=== PATIENT | female | born 1955 | race Caucasian/White ===

== ENCOUNTER 2017-01-20 15:44 | Inpatient (IN) ==
[2017-01-20] MEDS ORDERED: Ipratropium/Albuterol Neb 3 ML IH ONE (15:58)
[2017-01-20] MEDS ORDERED: Albuterol 2.5 MG/3 ML NEBULIZER IH ONE (15:58)
[2017-01-20] MEDS ORDERED: methylPREDNISolone 125 MG/2 ML VIAL IVP ONE (15:58)
--- NOTE | 2017-01-20 16:01 | Emergency Department Note ---
Disposition Clinical Impression: COPD exacerbation Pneumonia Qualifiers: Pneumonia type: due to unspecified organism Laterality: left Lung location: lower lobe of lung Qualified Code(s): J18.1 - Lobar pneumonia, unspecified organism Disposition: Admitted As Inpatient Condition: Good Referrals: NO,PCP [Non-Partnered Physician] - Forms: ED Satisfaction Letter Time of Disposition: 18:22 SOB HPI - General Chief Complaint: ED Shortness of Breath/Dyspnea Stated Complaint: khushboo Time Seen by Provider: 01/20/17 15:55 Source: patient Mode of arrival: EMS Limitations: no limitations Nursing Notes Reviewed: Yes Vital Signs Reviewed: Yes - History of Present Illness 61-year-old white female transported by EMS with difficulty breathing, cough, fever. She states she has been sick for 3 months. She has been on antibiotics on and off. Her most recent antibiotic is Ceftin. Her most recent steroid taper was started 2-1/2 weeks ago. She states the last 2 days she has had intermittent fever up to 102.7. Her cough is nonproductive. She wears home oxygen at 3 L. Her last breathing treatment was a DuoNeb in route and the squad. She denies chest pain. She states she has been more short of breath than usual for at least 2 weeks. Pt Subjective Complaint: shortness of breath, cough Onset (ago): week(s) Context: recent illness (2) Severity: moderate Consistency/Duration: constant Improves with: oxygen, rest, bronchodilators Worsens with: exertion, coughing Known history of: COPD Associated symptoms: Reports: denies other symptoms Treatment prior to arrival: oxygen, bronchodilator, other (Prednisone) Cough present: Yes Cough Description: Involuntary Cough Frequency: Intermittent Sputum production: No - Related Data Home oxygen amount: 3 liters Home Medications Medication Instructions Recorded Confirmed Acetaminophen [Tylenol] 500 mg PO BID 01/20/17 01/20/17 Alprazolam [Xanax 0.5 MG Tablet] 0.5 mg PO DAILY 01/20/17 01/20/17 Aspirin 81 mg PO DAILY 01/20/17 01/20/17 Bupropion HCl [Wellbutrin Xl] 300 mg PO DAILY 01/20/17 01/20/17 Docusate [Colace] 100 mg PO BID 01/20/17 01/20/17 Ibuprofen [Motrin] 800 mg PO Q8HR 01/20/17 01/20/17 Metformin [Glucophage] 1,000 mg PO BIDWM 01/20/17 01/20/17 Omeprazole [PriLOSEC] 40 mg PO DAILY 01/20/17 01/20/17 Oxygen 1 each .ROUTE AD 01/20/17 01/20/17 PredniSONE [Deltasone] 20 mg PO DAILY 01/20/17 01/20/17 Promethazine [Phenergan] 25 mg PO Q6HR 01/20/17 01/20/17 Ranitidine HCl [Zantac] 150 mg PO BID 01/20/17 01/20/17 Roflumilast [Daliresp] 500 mcg PO DAILY 01/20/17 01/20/17 Sucralfate [Carafate] 1 gm PO QIDAC 01/20/17 01/20/17 Allergies Allergy/AdvReac Type Severity Reaction Status Date / Time doxycycline Allergy Anaphylaxis Verified 12/20/16 17:18 Latex, Natural Rubber Allergy Redness of Verified 12/20/16 17:18 Skin levofloxacin [From Levaquin] Allergy Anaphylaxis Verified 12/20/16 17:18 moxifloxacin [From Avelox] Allergy Anaphylaxis Verified 12/20/16 17:18 propoxyphene AdvReac Nausea Verified 12/20/16 17:18 [From Darvocet-N] All systems ED: reviewed and negative except as stated. Constitutional: Reports: fever, chills Eyes: Denies: eye discharge ENT ED: Denies: ear pain, throat pain Cardiovascular: Reports: palpitations. Denies: chest pain Respiratory: Reports: cough, dyspnea, wheezes. Denies: sputum production Gastrointestinal: Denies: abdominal pain, nausea, vomiting, diarrhea Psychiatric: Reports: anxiety Past Medical History - Past Medical History Medical history: Reports: arthritis, COPD, coronary artery disease, diabetes, GERD, hyperlipidemia, hypertension Surgical history: Reports: appendectomy, breast surgery, hysterectomy, orthopedic, other Psychiatric history: Reports: anxiety - Social History Smoking Status: Former smoker Smokeless Tobacco Status: No Alcohol use: Reports: none Drug use: Reports: none Physical Exam - General Limitations: no limitations General appearance: alert, in no apparent distress - Head Head exam: atraumatic, normocephalic - Eye Eye exam: Present: PERRL, EOMI. Absent: scleral icterus, conjunctival injection - ENT ENT exam: normal oropharynx, mucous membranes moist, TM's normal bilaterally - Neck Neck exam: Present: normal inspection, full ROM, trachea midline. Absent: tenderness, lymphadenopathy - Chest Chest inspection: Present: normal inspection, symmetric chest wall rise - Respiratory Respiratory exam: Present: respiratory distress (Mildly dyspneic), wheezes ( Moderate, bilateral, expiratory, diffuse.), prolonged expiratory phase - Cardiovascular Cardiovascular exam: Present: tachycardia (Rate of 1:30). Absent: systolic murmur, diastolic murmur, gallop - Abdominal Exam Abdominal exam: Present: soft, Non-Tender - Extremities Exam Extremities exam: Present: normal capillary refill. Absent: pedal edema, calf tenderness - Neurological Exam Neurological exam: Present: alert, oriented X3. Absent: motor sensory deficit - Psychiatric Psychiatric exam: Present: anxious - Skin Skin exam: Present: warm, dry, intact. Absent: cyanosis, diaphoresis Course - Reevaluation(s) Reevaluation #1: Patient improved. Her heart rate is down to 105. She is moving air better. She feels better. She will require hospitalization. I discussed this with the patient. She is agreeable. I spoke with Dr. Carney. He has accepted the patient for admission. Time: 18:20 Vital Signs Temperature 102.2 F H 01/20/17 15:44 Pulse Rate 120 01/20/17 15:44 Respiratory Rate 30 01/20/17 15:44 Blood Pressure 160/91 01/20/17 15:44 O2 Sat by Pulse Oximetry 97 01/20/17 15:44 Temperature 101.4 F H 01/20/17 18:04 Pulse Rate 126 01/20/17 17:14 Respiratory Rate 20 01/20/17 18:04 Blood Pressure 95/73 01/20/17 17:14 O2 Sat by Pulse Oximetry 96 01/20/17 18:04 Oxygen Delivery Oxygen Delivery Nasal Cannula Shortness of Breath/Dyspnea - [facility] Narrative Medical decision making narrative: Differential includes but is not limited to pneumonia, CHF, COPD exacerbation, bronchitis with bronchospasm, pleural effusion, pulmonary embolus, congestive heart failure. Radiographically she has atelectasis on the left, clinically she has pneumonia, findings on exam as well as fever. I am going to treat her for a left-sided pneumonia with COPD exacerbation. She will be admitted. - Lab Data Result diagrams: 01/20/17 16:57 01/20/17 16:57 Lab Results 01/20/17 01/20/17 01/20/17 Range/Units 16:57 16:57 16:57 WBC 17.9 H (4.3-11.1) K/mcL RBC 4.51 (3.82-4.97) M/mcL Hgb 14.0 (11.5-15.4) g/dL Hct 42.5 (35.3-44.9) % MCV 94.2 (83.0-100.0) fL MCH 31.0 (28.0-33.3) pg MCHC 32.9 (31.6-35.5) g/dL RDW 14.1 (11.5-14.5) % Plt Count 181 (140-400) K/mcL MPV 10.0 (9.4-12.4) fL Immature Gran % 0.6 (0-4) % Seg Neutrophils % 79.1 % Lymphocytes % 10.8 % Monocytes % 9.2 % Eosinophils % 0.1 % Basophils % 0.2 % Neutrophils # 14.2 H (1.6-8.9) K/mcL Lymphocytes # 1.9 (0.6-4.6) K/mcL Monocytes # 1.7 H (0.0-1.3) K/mcL Eosinophils # 0.0 (0.0-0.6) K/mcL Basophils # 0.0 (0.0-0.2) K/mcL VBG Lactic Acid (0.5-2.2) mmol/L Sodium 139 (136-145) mEq/L Potassium 4.3 (3.5-4.5) mEq/L Chloride 100 (98-109) mEq/L Carbon Dioxide 25 (19-29) mEq/L BUN 14 (7-20) mg/dL Creatinine 0.75 (0.57-1.11) mg/dL Est GFR ( Amer) > 60 (> 60) Est GFR (Non-Af Amer) > 60 (> 60) BUN/Creatinine Ratio 19 (6-26) Glucose 100 H (70-99) mg/dL Calculated Osmolality 289 (280-300) Calcium 9.8 (8.6-10.8) mg/dL Total Bilirubin 0.3 (0.2-1.2) mg/dL AST 15 (5-34) Units/L ALT 17 (0-55) Units/L Alkaline Phosphatase 73 (38-126) Units/L Troponin I 0.02 (0-0.03) ng/mL B-Natriuretic Peptide (0-100) pg/mL Serum Total Protein 7.7 (6.0-8.3) g/dL Albumin 3.6 (3.5-5.0) g/dL Globulin 4.1 H (2.4-3.5) g/dL Albumin/Globulin Ratio 0.9 L (1.1-2.2) 01/20/17 01/20/17 Range/Units 16:57 16:57 WBC (4.3-11.1) K/mcL RBC (3.82-4.97) M/mcL Hgb (11.5-15.4) g/dL Hct (35.3-44.9) % MCV (83.0-100.0) fL MCH (28.0-33.3) pg MCHC (31.6-35.5) g/dL RDW (11.5-14.5) % Plt Count (140-400) K/mcL MPV (9.4-12.4) fL Immature Gran % (0-4) % Seg Neutrophils % % Lymphocytes % % Monocytes % % Eosinophils % % Basophils % % Neutrophils # (1.6-8.9) K/mcL Lymphocytes # (0.6-4.6) K/mcL Monocytes # (0.0-1.3) K/mcL Eosinophils # (0.0-0.6) K/mcL Basophils # (0.0-0.2) K/mcL VBG Lactic Acid 1.8 (0.5-2.2) mmol/L Sodium (136-145) mEq/L Potassium (3.5-4.5) mEq/L Chloride (98-109) mEq/L Carbon Dioxide (19-29) mEq/L BUN (7-20) mg/dL Creatinine (0.57-1.11) mg/dL Est GFR ( Amer) (> 60) Est GFR (Non-Af Amer) (> 60) BUN/Creatinine Ratio (6-26) Glucose (70-99) mg/dL Calculated Osmolality (280-300) Calcium (8.6-10.8) mg/dL Total Bilirubin (0.2-1.2) mg/dL AST (5-34) Units/L ALT (0-55) Units/L Alkaline Phosphatase (38-126) Units/L Troponin I (0-0.03) ng/mL B-Natriuretic Peptide 26 (0-100) pg/mL Serum Total Protein (6.0-8.3) g/dL Albumin (3.5-5.0) g/dL Globulin (2.4-3.5) g/dL Albumin/Globulin Ratio (1.1-2.2) - EKG Data EKG attestation: Yes I reviewed and interpreted this EKG. EKG results narrative: Sinus tachycardia, rate of 126, nonspecific ST-T changes. Rhythm strip shows sinus tachycardia with a rate of 126, appear irritable 49 ms, QRS of 80 ms with no other ectopy as interpreted by me. This is compared to a tracing dated , no significant change with the exception of the tachycardia
[2017-01-20] MEDS ORDERED: Azithromycin 500 MG in D5% in Water 250 ML IVPB ONE (16:03)
[2017-01-20 17:11] LABS: Basophils % 0.2 %; Eosinophils % 0.1 %; Hematocrit 42.5 % (35.3-44.9); Immature Granulocytes % 0.6 % (0-4); Lymphocytes # 1.9 K/mcL (0.6-4.6); Lymphocytes % 10.8 %; Mean Corpuscular HGB Conc 32.9 g/dL (31.6-35.5); Mean Corpuscular Volume 94.2 fL (83.0-100.0); Monocytes # 1.7 K/mcL (0.0-1.3); Monocytes % 9.2 %; Neutrophils # 14.2 K/mcL (1.6-8.9); Platelet Count 181 K/mcL (140-400); Red Blood Count 4.51 M/mcL (3.82-4.97); Red Cell Distribution Width 14.1 % (11.5-14.5); Segmented Neutrophils % 79.1 %
[2017-01-20 17:30] LABS: Alanine Aminotransferase 17 Units/L (0-55); Albumin 3.6 g/dL (3.5-5.0); Albumin/Globulin Ratio 0.9 (1.1-2.2); Alkaline Phosphatase 73 Units/L (38-126); Aspartate Amino Transferase 15 Units/L (5-34); BUN/Creatinine Ratio 19 (6-26); Bilirubin,Total 0.3 mg/dL (0.2-1.2); Blood Urea Nitrogen 14 mg/dL (7-20); Calcium 9.8 mg/dL (8.6-10.8); Carbon Dioxide 25 mEq/L (19-29); Chloride 100 mEq/L (98-109); Globulin 4.1 g/dL (2.4-3.5); Glucose 100 mg/dL (70-99); Osmolality,Calculated 289 (280-300); Potassium 4.3 mEq/L (3.5-4.5); Sodium 139 mEq/L (136-145); Total Protein 7.7 g/dL (6.0-8.3); eGFR For African Americans > 60 (> 60); eGFR For Non-African Americans > 60 (> 60)
[2017-01-20] MEDS ORDERED: 0.9 % Sodium Chloride 500 ML IVC ONE (17:38)
[2017-01-20] MEDS ORDERED: 0.9 % Sodium Chloride 1,000 ML IVC SCH ×2 (17:45→19:23)
[2017-01-20] MEDS ORDERED: *HR* OxyCODONE/APAP 5/325 TABLET PO ONE (17:51)
[2017-01-20] MEDS ORDERED: Ondansetron ODT 4 MG TAB.RAPDIS SL ONE (17:57)
[2017-01-20] MEDS ORDERED: Azithromycin 500 MG in D5% in Water 250 ML IVPB SCH (19:23)
[2017-01-20] MEDS ORDERED: Naloxone 0.4 MG/ML INJ IVP PRN (19:23)
[2017-01-20] MEDS: Ipratropium/Albuterol Neb 3 ML IH SCH ×2 (20:24→23:31)
[2017-01-20] MEDS ORDERED: *HR* Morphine 2 MG/ML SYRINGE IVP ONE (20:27)
[2017-01-20] MEDS: Nitroglycerin 0.4 MG TAB.SUBL SL PRN ×2 (20:47→20:54)
[2017-01-20] MEDS: MethylPREDNISolone 40 MG/ML VIAL IVP SCH (20:54)
[2017-01-20] MEDS: 0.9 % Sodium Chloride 1,000 ML IVC SCH (20:55)
[2017-01-20] MEDS: Famotidine 20 MG TABLET PO SCH (20:55)
[2017-01-20] MEDS: Sucralfate 1 GM TABLET PO SCH (20:56)
[2017-01-20] MEDS: Ondansetron 4 MG/2 ML VIAL IVP PRN (21:08)
[2017-01-20] MEDS: Budesonide/Formoterol 80/4.5 MDI IH SCH (23:31)
[2017-01-21] MEDS: 0.9 % Sodium Chloride 1,000 ML IVC SCH (04:10)
[2017-01-21] MEDS: Ipratropium/Albuterol Neb 3 ML IH SCH ×2 (04:28→08:25)
[2017-01-21] MEDS: *HR* Enoxaparin 40 MG/0.4 ML SYRINGE SQ SCH (04:50)
[2017-01-21] MEDS: MethylPREDNISolone 40 MG/ML VIAL IVP SCH ×3 (04:50→18:08)
[2017-01-21] MEDS: *HR* HYDROcodone/Acet 5/325 mg TABLET PO PRN ×2 (05:36→10:44)
[2017-01-21] MEDS: Budesonide/Formoterol 80/4.5 MDI IH SCH ×2 (07:29→22:18)
[2017-01-21] MEDS: Sucralfate 1 GM TABLET PO SCH ×4 (08:47→22:30)
[2017-01-21] MEDS: *HR* Metformin 500 MG TABLET PO SCH ×2 (08:48→17:57)
[2017-01-21] MEDS: Aspirin 81 MG TAB.CHEW PO SCH (08:49)
[2017-01-21] MEDS: Famotidine 20 MG TABLET PO SCH ×2 (08:50→22:32)
[2017-01-21] MEDS: BuPROPion XL (24 HR) 150 MG TABLET PO SCH (08:51)
[2017-01-21] MEDS ORDERED: ALPRAZolam 0.5 MG TABLET PO SCH (09:00)
--- NOTE | 2017-01-21 10:32 | Electrocardiograph Report ---
[address] [place], [place] [address] Test Date: 2017-01-20 Pat Name: Chapis Talavera Department: [id number] Room: [facility] Gender: F Drawing Instructor: : [id number] Requested By: Scott Madrid Order Number: [id number] Reading MD: Arvind Calderon Measurements Intervals [place] Rate: 126 P: 63 PA: 149 QRS: 67 QRSD: 80 T: 59 QT: 276 QTc: 351 Interpretive Statements SINUS TACHYCARDIA ABNORMAL RHYTHM ECG Electronically Signed On 01-21-2017 10:30:34 EDT by Arvind Calderon
--- NOTE | 2017-01-21 10:35 | Internal Med History&Physical ---
Date of Encounter: 01/21/17 Time of Encounter: 10:00 Assessment and Plan (1) Pneumonia Current visit: Yes Status: Acute Equivocal evidence. She has been started on Rocephin and Zithromax with Solu- Medrol through emergency room. I will order viral respiratory panel. Qualifiers: Pneumonia type: due to unspecified organism Laterality: left Lung location: lower lobe of lung Qualified Code(s): J18.1 - Lobar pneumonia, unspecified organism (2) COPD exacerbation Current visit: Yes Status: Acute Continue antibiotics, Solu-Medrol, Symbicort, albuterol nebs, and Robitussin. Will start Spiriva (3) DM type 2 (diabetes mellitus, type 2) Current visit: Yes Status: Chronic Hemoglobin A1c was acceptable at 5.4% on 11/27/2016. Continue Glucophage and Accu-Cheks with SSI. Qualifiers: Diabetes mellitus complication status: without complication Diabetes mellitus senior living insulin use: without long term care administrator use Qualified Code(s): E11.9 - Type 2 diabetes mellitus without complications (4) Hypertension Current visit: Yes Status: Chronic Continue Coreg Qualifiers: Hypertension type: essential hypertension Qualified Code(s): I10 - Essential (primary) hypertension Internal Medicine - H&P: HPI Chief complaint: Dyspnea Admitted From: Home Plans for Post Hospital Care: Home History of present illness: Ms. Talavera is a 61 year old female who came to the emergency room at the insistence of her home health aide after having fevers up to 101 at home over the last 2 days. She reports she has been having multiple respiratory infections with dyspnea for the past 2-3 months. She has taken courses of erythromycin, Augmentin, and Ceftinir without significant improvement. She was evaluated in emergency room and felt to have possible pneumonia. She was [facility] floor for ongoing care needs. Her respiratory history is significant for having smoked from age 17 until quitting approximately 6 months ago. She smoked up to 3 packs per day. She has a diagnosis of COPD and wears oxygen at home 24/7 at 3 L/m. She uses an electronic cigarette occasionally at home. She has been tested for sleep apnea but was not prescribed BiPAP. She follows with [employer] quarter backer every 3-6 months with next appointment scheduled 02/18/2017. Chest CT 11/09/2016 showed bandlike nodularity within the lingula with a 6 mm nodule density present. Short-term follow-up CT was suggested in 6 months. Past Med Surg Social Fam HX - Past Medical History Medical history: arthritis, COPD, coronary artery disease, diabetes, GERD, hyperlipidemia, hypertension Psychiatric history: anxiety - Past Surgical History Surgical History: appendectomy, breast surgery, hysterectomy, orthopedic, other - Social History Smoking Status: Former smoker Smokeless Tobacco Status: No Alcohol use: none Drug use: none - Family History Mother Living Status: Hx Family Cancer: Yes (lung cancer) Father Living Status: Still Living Hx Family Cardiac Disorders: Yes (HTN) Internal Medicine - H&P: Meds Acetaminophen [Tylenol] 500 mg PO BID 01/20/17 [History] Alprazolam [Xanax 0.5 MG Tablet] 0.5 mg PO DAILY 01/20/17 [History] Aspirin 81 mg PO DAILY 01/20/17 [History] Bupropion HCl [Wellbutrin Xl] 300 mg PO DAILY 01/20/17 [History] Docusate [Colace] 100 mg PO BID 01/20/17 [History] Ibuprofen [Motrin] 800 mg PO Q8HR 01/20/17 [History] Metformin [Glucophage] 1,000 mg PO BIDWM 01/20/17 [History] Omeprazole [PriLOSEC] 40 mg PO DAILY 01/20/17 [History] Oxygen 1 each .ROUTE AD 01/20/17 [History] PredniSONE [Deltasone] 20 mg PO DAILY 01/20/17 [History] Promethazine [Phenergan] 25 mg PO Q6HR 01/20/17 [History] Ranitidine HCl [Zantac] 150 mg PO BID 01/20/17 [History] Roflumilast [Daliresp] 500 mcg PO DAILY 01/20/17 [History] Sucralfate [Carafate] 1 gm PO QIDAC 01/20/17 [History] Allergies doxycycline Allergy (Verified 12/20/16 17:18) Anaphylaxis Latex, Natural Rubber Allergy (Verified 12/20/16 17:18) Redness of Skin levofloxacin [From Levaquin] Allergy (Verified 12/20/16 17:18) Anaphylaxis moxifloxacin [From Avelox] Allergy (Verified 12/20/16 17:18) Anaphylaxis propoxyphene [From Darvocet-N] Adverse Reaction (Verified 12/20/16 17:18) Nausea All Systems PM: A 10-system review of systems was performed and is negative for pertinent findings except as documented above in the HPI. Review of systems: Gen.: She states her weight has fluctuated significantly over the past year due to steroid use. Cardiovascular: She has history of hypertension but denies AL heart failure angina DVT or pulmonary embolus Respiratory: As per history of present illness GI: She has GERD but denies disorders of her liver gallbladder or exocrine pancreas : She denies hematuria dysuria or kidney stones Neurologic: She denies large distribution strokes or seizures Endocrine: She was diagnosed with DM 2 approximately 2 years ago. She has hyperlipidemia but denies thyroid disease Hematology/oncology: She denies blood disorders cancers or anemia Psychiatric: She has anxiety and depression but denies other mental health issues Musk skeletal: She reports 3 rotator cuff surgeries on her left shoulder in the past. She has had bilateral total shoulder replacements in 2011/2012. She has degenerative disc disease of the neck. She denies gout or other bone joint or muscle disorders. - Constitutional Vitals: Temp Pulse Resp BP Pulse Ox 97.5 F L 81 16 120/66 95 01/21/17 06:48 01/21/17 06:48 01/21/17 08:28 01/21/17 06:48 01/21/17 08:28 Exam: Gen.: She is a well-developed well-nourished female who appears slightly dyspneic HEENT: Head is atraumatic, normocephalic. Eyes: EOMI. There is no scleral icterus. Mouth: Mucosa is moist. Neck: Supple and nontender. There is no thyromegaly or adenopathy noted. Heart: Regular without murmurs gallops or ectopics. Lungs: She has diminished breath sounds diffusely. There is prolonged expiratory phase. There is a trivial amount expiratory wheezing heard. There is no egophony. Abdomen: Soft and nontender. No masses or guarding are noted. Extremities: There is no cyanosis edema or clubbing noted. Dorsalis pedis and posttibial pulses are 1-2 over 2 bilaterally. Neurologic: Mental status: She is talkative and a good historian. Cranial nerves: Smile is symmetric. Forehead wrinkles bilaterally. Tongue protrudes midline. EOMI. Motor: There is no pronator drift. Cerebellar: Finger to nose is intact bilaterally. Skin: Warm and dry Internal Med - H&P Results - Labs CBC & Chem 7: 01/20/17 16:57 01/20/17 16:57
[2017-01-21] MEDS: Ondansetron 4 MG/2 ML VIAL IVP PRN (10:40)
[2017-01-21] MEDS ORDERED: Tiotropium 18 MCG inhalation IH SCH (11:00)
[2017-01-21] MEDS ORDERED: Ipratropium/Albuterol Neb 3 ML IH SCH (12:00)
[2017-01-21] MEDS: Azithromycin 500 MG in D5% in Water 250 ML IVPB SCH (15:52)
[2017-01-21] MEDS: Ipratropium/Albuterol Neb 3 ML IH PRN ×2 (16:14→22:18)
[2017-01-21] MEDS: *HR* OxyCODONE/APAP 5/325 TABLET PO PRN ×2 (17:57→22:39)
[2017-01-22] MEDS: *HR* OxyCODONE/APAP 5/325 TABLET PO PRN ×5 (02:55→22:36)
[2017-01-22] MEDS: MethylPREDNISolone 40 MG/ML VIAL IVP SCH ×3 (02:56→16:41)
[2017-01-22] MEDS: Ondansetron 4 MG/2 ML VIAL IVP PRN (03:03)
[2017-01-22] MEDS: Ipratropium/Albuterol Neb 3 ML IH PRN ×5 (03:18→21:31)
[2017-01-22] MEDS ORDERED: ALPRAZolam 0.5 MG TABLET PO ONE (03:52)
[2017-01-22 06:12] LABS: Basophils % 0.1 %; Hematocrit 37.3 % (35.3-44.9); Hemoglobin 12.3 g/dL (11.5-15.4); Immature Granulocytes % 1.1 % (0-4); Lymphocytes # 0.8 K/mcL (0.6-4.6); Lymphocytes % 4.2 %; Mean Corpuscular Hemoglobin 31.5 pg (28.0-33.3); Mean Corpuscular Volume 95.4 fL (83.0-100.0); Mean Platelet Volume 11.5 fL (9.4-12.4); Monocytes # 0.7 K/mcL (0.0-1.3); Monocytes % 3.5 %; Neutrophils # 17.6 K/mcL (1.6-8.9); Platelet Count 163 K/mcL (140-400); Red Blood Count 3.91 M/mcL (3.82-4.97); Red Cell Distribution Width 14.1 % (11.5-14.5); Segmented Neutrophils % 91.1 %
[2017-01-22 06:38] LABS: Platelet Estimate Normal (Normal)
[2017-01-22] MEDS: Budesonide/Formoterol 80/4.5 MDI IH SCH ×2 (07:39→21:31)
[2017-01-22] MEDS: *HR* Enoxaparin 40 MG/0.4 ML SYRINGE SQ SCH (07:46)
[2017-01-22] MEDS: Sucralfate 1 GM TABLET PO SCH ×4 (07:47→22:30)
[2017-01-22] MEDS: BuPROPion XL (24 HR) 150 MG TABLET PO SCH (07:47)
[2017-01-22] MEDS: *HR* Metformin 500 MG TABLET PO SCH ×2 (07:47→16:41)
[2017-01-22] MEDS: Aspirin 81 MG TAB.CHEW PO SCH (07:47)
[2017-01-22] MEDS: Famotidine 20 MG TABLET PO SCH ×2 (07:47→22:29)
[2017-01-22] MEDS: ALPRAZolam 0.5 MG TABLET PO SCH ×2 (07:48→22:29)
--- NOTE | 2017-01-22 10:02 | Internal Med Progress Note ---
Date of Encounter: 01/22/17 Time of Encounter: 09:53 - Assessment and plan (1) Pneumonia Current Visit: Yes Status: Acute Assessment and plan: Pt with small left effusion on CXR, likely parapneumonic, associated with mild airspace disease. Pt has received IV ceftriaxone. Will d/c cephalosporin and continue azithromycin alone. Supportive care as discussed. Qualifiers: Pneumonia type: due to unspecified organism Laterality: left Lung location: lower lobe of lung Qualified Code(s): J18.1 - Lobar pneumonia, unspecified organism (2) COPD exacerbation Current Visit: Yes Status: Acute Assessment and plan: Moderate to severe. Will continue aggressive nebulizer treatment along with pulmonary toilet. Will continue IV steroids for now along with oxygen supplementation. - Time Spent With Patient 25 - 35 minutes - Subjective Interval history: Pt with no acute events overnight. She continues to receive nebulizer treatments frequently. She remains short of breath with considerable wheeze. Activity remains limited secondary to dyspnea, but pt is ambulating in room and asking to walk in the halls. She is tolerating regular diet. - Constitutional Vitals: Temp Pulse Resp BP Pulse Ox 97.6 F 80 19 120/74 96 01/22/17 07:20 01/22/17 07:20 01/22/17 07:40 01/22/17 07:20 01/22/17 07:40 Exam: Gen: Lying in bed, NAD HEENT: NC, AT Neck: Trachea midline, no mass Pulm: + mild espiratory distress,moderate expiratory wheeze throughout with fair air movement, no crackles, + egophony CV: Normal S1 and S2, RRR Abdomen: Soft, ND, NT Ext: No C/C/E Neuro: No appreciable motor/sensor deficits Skin: Warm and dry, no rash Psych: A&Ox3 Internal Medicine: Result - Labs CBC & Chem 7: 01/22/17 05:32 01/20/17 16:57 Labs: Short CBC 01/22/17 Range/Units 05:32 WBC 19.3 H (4.3-11.1) K/mcL Hgb 12.3 D (11.5-15.4) g/dL Hct 37.3 (35.3-44.9) % Plt Count 163 (140-400) K/mcL Neutrophils # 17.6 H (1.6-8.9) K/mcL Consult Discharge Plan - Plan Referrals: Janiya Doss MD [Primary Care Provider] - 1 week
[2017-01-22] MEDS: Azithromycin 500 MG in D5% in Water 250 ML IVPB SCH (16:42)
[2017-01-23] MEDS: *HR* OxyCODONE/APAP 5/325 TABLET PO PRN (04:49)
[2017-01-23] MEDS: *HR* Enoxaparin 40 MG/0.4 ML SYRINGE SQ SCH (04:49)
[2017-01-23] MEDS: Ipratropium/Albuterol Neb 3 ML IH PRN (04:51)
[2017-01-23 06:36] VITALS: BP 151/88
[2017-01-23] MEDS: Aspirin 81 MG TAB.CHEW PO SCH (07:47)
[2017-01-23] MEDS: ALPRAZolam 0.5 MG TABLET PO SCH (07:48)
[2017-01-23] MEDS: Famotidine 20 MG TABLET PO SCH (07:48)
[2017-01-23] MEDS: *HR* Metformin 500 MG TABLET PO SCH (07:48)
[2017-01-23] MEDS: BuPROPion XL (24 HR) 150 MG TABLET PO SCH (07:48)
[2017-01-23] MEDS: Sucralfate 1 GM TABLET PO SCH (07:48)
[2017-01-23] MEDS ORDERED: predniSONE 20 MG TABLET PO SCH (09:00)
--- NOTE | 2017-01-23 09:34 | Discharge Summary ---
Date of Encounter: 01/23/17 Time of Encounter: 09:24 - Discharge Diagnosis (1) Pneumonia Priority: Primary Status: Acute Qualifiers: Pneumonia type: due to unspecified organism Laterality: left Lung location: lower lobe of lung Qualified Code(s): J18.1 - Lobar pneumonia, unspecified organism (2) COPD exacerbation Priority: Secondary Status: Acute - Discharge Medications Prescriptions: Azithromycin [Zithromax] 250 mg PO Q24H #3 tablet Hydrocodone Bit/Homatrop Me-Br [Hydrocodone-Homatropine Syrup] 5 ml PO Q4-6H PRN #200 ml PRN Reason: Cough PredniSONE See Taper PO DAILY #30 tablet Home Medications: Acetaminophen [Tylenol] 500 mg PO BID 01/20/17 [History] Alprazolam [Xanax 0.5 MG Tablet] 0.5 mg PO BID 01/20/17 [History] Aspirin 81 mg PO DAILY 01/20/17 [History] Bupropion HCl [Wellbutrin Xl] 300 mg PO DAILY 01/20/17 [History] Docusate [Colace] 100 mg PO BID 01/20/17 [History] Ibuprofen [Motrin] 800 mg PO Q8HR 01/20/17 [History] Metformin [Glucophage] 1,000 mg PO BIDWM 01/20/17 [History] Omeprazole [PriLOSEC] 40 mg PO DAILY 01/20/17 [History] Oxygen 1 each .ROUTE AD 01/20/17 [History] PredniSONE [Deltasone] 20 mg PO DAILY 01/20/17 [History] Promethazine [Phenergan] 25 mg PO Q6HR 01/20/17 [History] Ranitidine HCl [Zantac] 150 mg PO BID 01/20/17 [History] Roflumilast [Daliresp] 500 mcg PO DAILY 01/20/17 [History] Sucralfate [Carafate] 1 gm PO QIDAC 01/20/17 [History] Azithromycin [Zithromax] 250 mg PO Q24H #3 tablet 01/23/17 [Rx] Carvedilol [Coreg] 6.25 mg PO BIDWM tablet 01/23/17 [Rx] Hydrocodone Bit/Homatrop Me-Br [Hydrocodone-Homatropine Syrup] 5 ml PO Q4-6H PRN #200 ml 01/23/17 [Rx] Ipratropium/Albuterol Neb [Duoneb] 3 ml IH Q2H PRN #0 inhsol 01/23/17 [Rx] Nitroglycerin 0.4 mg SL Q5MIN PRN #0 tab.subl 01/23/17 [Rx] PredniSONE See Taper PO DAILY #30 tablet 01/23/17 [Rx] Simvastatin [Zocor] 40 mg PO HS tablet 01/23/17 [Rx] Allergies/Adverse Reactions: Allergies doxycycline Allergy (Verified 12/20/16 17:18) Anaphylaxis Latex, Natural Rubber Allergy (Verified 12/20/16 17:18) Redness of Skin levofloxacin [From Levaquin] Allergy (Verified 12/20/16 17:18) Anaphylaxis moxifloxacin [From Avelox] Allergy (Verified 12/20/16 17:18) Anaphylaxis propoxyphene [From Darvocet-N] Adverse Reaction (Verified 12/20/16 17:18) Nausea Procedures/tests Complete & Pending: ITS Impressions Chest X-Ray 01/20/17 15:58 IMPRESSION: Small left pleural effusion with left midlung and left basilar atelectasis. D/ / Charlette Guerra MD / Charlette Guerra MD Interpreting Provider: Charlette Guerra MD Date of admission: 01/21/17 14:57 Primary care physician: Janiya Doss Consults: None Discharging clinician: Isreal Atkins Anticipated date of discharge: 01/23/17 - Patient Status Disposition: Home, Self-Care Condition: Good Functional capacity at discharge: independent ambulation Overall status at discharge: patient is back to baseline - Discharge Instructions Instructions: Diabetes Mellitus Type 2 in Adults (DC), Chronic Obstructive Pulmonary Disease (DC), Chronic Hypertension (DC), Pneumonia (DC) Follow Up With: Janiya Doss MD [Primary Care Provider] - 1 week (unable to schedule 1 week followup office closed. appointment will be made wednesday01/25/17 per charge nurse) - Diet and Activity Activity: increase activity as tolerated Diet: advance to your usual diet Interval History: Pt has improved by 50-60% over last 24 hours with IV antibiotics and IV steroids. She is approaching baseline and has been ambulating, tolerating po and with normal BMs. Hospital course: Ms. Talavera is a 61 year old female that was admitted from the ER for a community acquired pneumonia and COPD exacerbation. Pt was treated with aggressive pulmonary toilet, nebulizers, IV steroids and IV antibiotics. Pt subsequently improved and will be discharged on oral macrolide and prolonged steroid taper. She has been asked to continue all home medications without change otherwise and to f/u with her billing representative in near future. - Time Spent with Patient Total time spent providing and/or coordinating discharge services: Less than 30 minutes - Constitutional Vitals: Temp Pulse Resp BP Pulse Ox 98.2 F 81 18 151/88 95 01/23/17 06:34 01/23/17 06:34 01/23/17 06:34 01/23/17 06:34 01/23/17 06:34 Exam: Gen: Lying in bed, NAD HEENT: NC, AT Neck: Trachea midline, no mass Pulm: No respiratory distress, speaking in full sentences, + mild expiratory wheeze throughout without crackles or egophony, + good air movement CV: Normal S1 and S2, RRR Abdomen: Soft, ND, NT Ext: No C/C/E Neuro: No appreciable motor/sensor deficits Skin: Warm and dry, no rash Psych: A&Ox3
--- NOTE | 2017-01-23 10:24 | Physician Discharge Referral ---
Home Health/Hosp Referral Info Transfer to: Home Health Attending Provider: alejandro jaime Provider in Charge Post Discharge: PCP (Dr. Doss) - Diagnosis (1) Pneumonia Status: Acute (2) COPD exacerbation Status: Acute - Respiratory Orders Oxygen / L per min (3) Smoking Cessation: Smoking cessation has been advised. For more information, call the [place] Tobacco Quit Line at 2-371-AUKO-NOW. - Diet/Nutrition Diet/Nutrition Orders: Regular - Activity Activity Orders: Up ad franky - Services Needed Following services are medically necessary services: Nursing, Home Health Aide - Transfer Medications Prescriptions: Azithromycin [Zithromax] 250 mg PO Q24H #3 tablet Hydrocodone Bit/Homatrop Me-Br [Hydrocodone-Homatropine Syrup] 5 ml PO Q4-6H PRN #200 ml PRN Reason: Cough PredniSONE See Taper PO DAILY #30 tablet Home Medications: Acetaminophen [Tylenol] 500 mg PO BID 01/20/17 [History] Alprazolam [Xanax 0.5 MG Tablet] 0.5 mg PO BID 01/20/17 [History] Aspirin 81 mg PO DAILY 01/20/17 [History] Bupropion HCl [Wellbutrin Xl] 300 mg PO DAILY 01/20/17 [History] Docusate [Colace] 100 mg PO BID 01/20/17 [History] Ibuprofen [Motrin] 800 mg PO Q8HR 01/20/17 [History] Metformin [Glucophage] 1,000 mg PO BIDWM 01/20/17 [History] Omeprazole [PriLOSEC] 40 mg PO DAILY 01/20/17 [History] Oxygen 1 each .ROUTE AD 01/20/17 [History] PredniSONE [Deltasone] 20 mg PO DAILY 01/20/17 [History] Promethazine [Phenergan] 25 mg PO Q6HR 01/20/17 [History] Ranitidine HCl [Zantac] 150 mg PO BID 01/20/17 [History] Roflumilast [Daliresp] 500 mcg PO DAILY 01/20/17 [History] Sucralfate [Carafate] 1 gm PO QIDAC 01/20/17 [History] Azithromycin [Zithromax] 250 mg PO Q24H #3 tablet 01/23/17 [Rx] Carvedilol [Coreg] 6.25 mg PO BIDWM tablet 01/23/17 [Rx] Hydrocodone Bit/Homatrop Me-Br [Hydrocodone-Homatropine Syrup] 5 ml PO Q4-6H PRN #200 ml 01/23/17 [Rx] Ipratropium/Albuterol Neb [Duoneb] 3 ml IH Q2H PRN #0 inhsol 01/23/17 [Rx] Nitroglycerin 0.4 mg SL Q5MIN PRN #0 tab.subl 01/23/17 [Rx] PredniSONE See Taper PO DAILY #30 tablet 01/23/17 [Rx] Simvastatin [Zocor] 40 mg PO HS tablet 01/23/17 [Rx] Allergies/Adverse Reactions: Allergies doxycycline Allergy (Verified 12/20/16 17:18) Anaphylaxis Latex, Natural Rubber Allergy (Verified 12/20/16 17:18) Redness of Skin levofloxacin [From Levaquin] Allergy (Verified 12/20/16 17:18) Anaphylaxis moxifloxacin [From Avelox] Allergy (Verified 12/20/16 17:18) Anaphylaxis propoxyphene [From Darvocet-N] Adverse Reaction (Verified 12/20/16 17:18) Nausea Certification: Further, I certify that my clinical findings support that this patient is homebound (i.e. absences from home require considerable and taxing effort and are for medical reasons or adventist services or infrequently or short duration when for other reasons) because: Homebound Reason: Leaving home requires considerable and taxing effort due to condition Attestation: My signature below is to certify that this patient is under my care and that I, or nurse practitioner, or a physician's support assistant working with me, has a face-to -face encounter with this patient.
[2017-01-23] MEDS ORDERED: Azithromycin 250 MG TABLET PO SCH (21:00)
== END 2017-01-23 11:12 | disposition home health service (06) | DRG 190 ==
LOC: INPPIK 15:44 → EMEROOPIK 15:44 → INPPIK 18:51
PROVIDERS: ADMIT Internal Medicine; ATTEND Internal Medicine